=== PATIENT | male | born 1990 | race African-American/Black ===

== ENCOUNTER 2020-09-12 22:57 | Emergency (ER) | payer MEDICAID ==
[~2020-09-12] VITALS: Ht 177.8 cm; Wt 69.0 kg
[2020-09-12 23:43] VITALS: BP 123/69
[2020-09-12] MEDS ORDERED: HYDROCODONE/ACETAMINOPHEN 5/325MG TABLET PO ONE (23:45)
== END 2020-09-13 00:10 | disposition left against medical advice (07) ==
LOC: ER 22:57
DX: S09.8XXA Other specified injuries of head, initial encounter (principal); Y08.89XA Assault by other specified means, initial encounter; Y93.89 Activity, other specified; Y92.89 Other specified places as the place of occurrence of the external cause; Y99.8 Other external cause status; I10 Essential (primary) hypertension
CPT/HCPCS: 99283